=== PATIENT | male | born 1990 | race Caucasian/White ===

== ENCOUNTER → 2016-08-07 | Outpatient (CLI) | payer OTHER ==
[~2016-08-07] MED LIST: MULTIVITAMINS PO; RELAFEN500 MG PO; ZYRTEC10 M2 PO
== END ==
LOC: CAT 09:35
DX: M47.814 Spondylosis without myelopathy or radiculopathy, thoracic region (principal); M46.44 Discitis, unspecified, thoracic region; M54.5 Low back pain; R10.2 Pelvic and perineal pain

== ENCOUNTER → 2016-08-08 | Outpatient (CLI) | payer OTHER | LOC: MRI 10:35 | DX: M46.46 Discitis, unspecified, lumbar region (principal); M54.16 Radiculopathy, lumbar region; M47.816 Spondylosis without myelopathy or radiculopathy, lumbar region ==